=== PATIENT | female | born 1965 ===

== ENCOUNTER → 2016-12-29 | Outpatient (REF) ==
[~2016-12-29] MED LIST: AUGMENTIN 875 M1 TAB PO; DOXYCYCLINE 10100 MG PO; FLAGYL500 MG PO; IBUPROFEN; IBUPROFEN600 MG PO; NO HOME MEDICATIONS
[2016-12-29 13:08] LABS: CHLAMYDIA/TRACH by PCR Female NOT DETECTED; NEISSERIA GON by PCR Female NOT DETECTED
== END ==
LOC: ZLAB.WCH 11:19
PROVIDERS: Nurse Practitioner Family
DX: Z01.89 Encounter for other specified special examinations (principal)